=== PATIENT | female | born 1975 | race Hispanic/Latino ===

== ENCOUNTER 2019-04-29 13:13 | Outpatient (CLI) | payer BC ==
--- NOTE | 2019-04-29 13:43 | Ultrasound Report ---
COMPLETE LEFT BREAST ULTRASOUND HISTORY: Left breast pain. COMPARISON: 04/13/2019 screening mammogram FINDINGS: Complete sonographic evaluation of the left breast including imaging of the four quadrants and subare olar areas reveals normal fibroglandular structures and fatty structures with no mass, cyst or suspic ious shadowing. IMPRESSION: Normal study. Recommendation: Clinical follow-up and routine mammographic screening. BIRADS 1: Negative. Signer Name: Meek Dong MD Signed: 04/29/2019 1:39 PM Workstation Name: [id number]
== END 2019-04-29 13:14 | disposition home or self-care (01) ==
LOC: SPVWC 13:13
PROVIDERS: ATTEND Surgery
DX: N64.4 Mastodynia (principal)